=== PATIENT | male | born 1945 | race Caucasian/White ===

== ENCOUNTER 2023-03-25 09:10 | Day surgery (SDC) | payer MEDICARE, SELFPAY ==
--- NOTE | 2023-03-21 11:54 | P.CONAN_ITS ---
HPI - Anesthesia Eval Consult details Narrative: 77yo M for Colonoscopy [facility], [facility] Past Medical History Medical History (Updated 03/21/23 @ 11:56 by Machelle Lozano NP) COPD with asthma Hypothyroid JARAD on CPAP Surgical History Surgical History (Updated 03/22/23 @ 10:58 by Yola Abdi, KINZA) H/O ligation of vein Hx of cholecystectomy Hx of external ear surgery Social History Social History Advance Directives: No Advance Directives Information Provided: Yes Meds Allergies Allergy/AdvReac Type Severity Reaction Status Date / Time No Known Allergies Allergy Verified 03/21/23 11:54 Home Medications Medication Instructions Recorded Confirmed Last Taken Type fluticasone fur. 200 mcg-umeclid 1 ea inhalation DAILY 03/21/23 03/21/23 Unknown History 62.5 mcg-vilant 25 mcg inhalat.powder (Trelegy Ellipta) levothyroxine 125 mcg tablet 125 mcg PO QAM 03/21/23 03/21/23 Unknown History Vitamin C 03/22/23 03/22/23 Unknown History Vitamin D2 03/22/23 03/22/23 Unknown History multivitamin 1 tab PO DAILY 03/22/23 03/22/23 Unknown History Exam Exam Date and Time: March 21, 2023 1154 Assessment and Plan Assessment Anesthesia Assessment: Chart Reviewed
[2023-03-25 10:10] VITALS: BMI 33.4
[2023-03-25 10:17] VITALS: BP 148/77; PULSE 59; RESP 16; TEMP 36.4; O2SAT 97
[2023-03-25] MEDS: Lactated Ringers 1,000 ML 100 ML IVCONT (10:32)
[2023-03-25 12:03] VITALS: BP 100/62; PULSE 59; RESP 16; TEMP 36.2; O2SAT 98
--- NOTE | 2023-03-25 12:04 | PM.OP ---
Brief Operative Note Date of Service: 03/25/23 Pre-op diagnosis: + Cologuard test Post-op diagnosis: other (Colon polyps) Procedure: Colonoscopy to the cecum and TI with cold snare polypectomy x 4 at 50cm, 40cm, and 20cm; and bx/removal of polyp in ascending colon Surgeon: Patricio Elise Anesthesia: MAC Was an Cyber [employer] used for this Procedure?: No Estimated blood loss (mL): 2.0 Pathology: other (A. Polyps at 40cm B. Ascending colon polyp C. Polyp at 50cm D. Polyp at 20cm) Condition: stable Disposition: PACU
[2023-03-25 12:18] VITALS: BP 119/72; PULSE 56; RESP 18; TEMP 37; O2SAT 97
--- NOTE | 2023-03-25 12:18 | OP_ITS ---
DATE OF SERVICE: 03/25/2023 SURGEON: Patricio Elise MD INDICATIONS: The patient presents for evaluation of a positive Cologuard test. Full consent has been obtained from him for this, including risks of bleeding and perforation. PREOPERATIVE DIAGNOSIS: POSTOPERATIVE DIAGNOSIS: PROCEDURE PERFORMED: Colonoscopy to the cecum and terminal ileum with cold snare polypectomy x 4 and biopsy and removal of polyp. ESTIMATED BLOOD LOSS: COMPLICATIONS: ANESTHESIA: Monitored anesthesia care. ASSISTANTS: SPECIMENS: PREOPERATIVE DIAGNOSES: Positive Cologuard test. POSTOPERATIVE DIAGNOSES: Positive Cologuard test. Colon polyps, diverticulosis, and internal hemorrhoids. DESCRIPTION OF PROCEDURE: The patient was placed in the left lateral decubitus position. The digital rectal exam revealed no abnormalities. The ID90T video pediatric colonoscope was entered into the rectum and advanced easily to the cecum. Once in the cecum, I did identify normal-appearing cecal pouch, the appendiceal orifice and a normal-appearing ileocecal valve. The terminal ileum was cannulated and appeared normal. Scope was withdrawn back in the colon. The entire cecum and ileocecal valve appeared normal. The scope was slowly withdrawn assessing all mucosal surfaces carefully. Preparation was excellent. In the ascending colon was a flat, approximately 3 mm polyp, which was biopsied and completely removed with cold biopsy forceps. At 50 cm, at 40 cm and at 20 cm were flat approximately 5 or 6 mm grossly adenomatous polyps, which were all removed by cold snare polypectomy and recovered by suction. All the polypectomy sites appeared clean, without any sign of residual polyp nor significant bleeding. Of note, the area at 40 cm had 2 polyps. I did not visualize any other polyps, colitis, or angiodysplasia. There was a mild amount of sigmoid diverticulosis. In the rectum, scope was retroflexed visualizing internal hemorrhoids, but no other pathology. The rectal mucosa appeared normal. Scope was straightened and withdrawn from the patient. He tolerated the procedure well and was returned to recovery area in stable condition. IMPRESSION: 1. Colon polyps. 2. Diverticulosis. 3. Internal hemorrhoids. PLAN: The results of the pathology will be checked. He was advised not to use any aspirin and NSAIDs for 1 week. Given the relatively minimal findings and his age, I do not think he will need any further screening colonoscopies in the future. He would see me on a p.r.n. basis. MD DEVANTE Foster/MICAH / [id number] MAU
== END 2023-03-25 13:02 | disposition home or self-care (01) ==
PROVIDERS: PCP Internal Medicine; Visit Provider Internal Medicine
PROC: 0DJD8ZZ Inspection of Lower Intestinal Tract, Via Natural or Artificial Opening Endoscopic (ICD-10-PCS; CPT 45378; principal; 2023-03-25 10:30)
DX: D12.5 Benign neoplasm of sigmoid colon (principal); D12.2 Benign neoplasm of ascending colon; K57.30 Diverticulosis of large intestine without perforation or abscess without bleeding; K64.8 Other hemorrhoids; R19.5 Other fecal abnormalities; J44.9 Chronic obstructive pulmonary disease, unspecified; G47.33 Obstructive sleep apnea (adult) (pediatric); Z99.89 Dependence on other enabling machines and devices
CPT/HCPCS: 45380; 45385; 88305; J2250